=== PATIENT | male | born 1990 | race Caucasian/White ===

== ENCOUNTER 2023-08-28 19:24 | Emergency (ER) | payer SELFPAY ==
[~2023-08-28] VITALS: Ht 180.3 cm; Wt 125.0 kg
[2023-08-28 20:01] LABS: HEMOGLOBIN 13.3 g/dl (13.5-17.5); MEAN CORPUSCULAR HEMOGLOBIN 30.2 pg (27.0-33.0); MEAN CORPUSCULAR HGB CONC 33.3 g/dl (32.0-36.5); MEAN CORPUSCULAR VOLUME 90.9 fl (80.0-96.0); PLATELET COUNT, AUTOMATED 276 10^3/uL (150-450); WHITE BLOOD COUNT 9.4 10^3/uL (4.0-10.0)
[2023-08-28 20:25] LABS: ETHYL ALCOHOL (ETHANOL) < 0.003 % (0.000-0.010)
[2023-08-28 20:27] LABS: ALBUMIN 3.9 G/DL (3.2-5.2); ALKALINE PHOSPHATASE 84 U/L (46-116); ALT/SGPT 44 U/L (7.0-40); AST/SGOT 23 U/L (<34); BILIRUBIN,DIRECT 0.2 MG/DL (<0.4); BILIRUBIN,TOTAL 0.9 MG/DL (0.3-1.2); BLOOD UREA NITROGEN 18 MG/DL (9-23); CALCIUM LEVEL 9.2 MG/DL (8.5-10.1); CARBON DIOXIDE LEVEL 28 MMOL/L (20-31); CHLORIDE LEVEL 108 MMOL/L (98-107); CREATININE FOR GFR 1.01 MG/DL (0.70-1.30); GLOMERULAR FILTRATION RATE > 60.0 (>60); GLUCOSE, FASTING 90 MG/DL (60-100); POTASSIUM SERUM 4.4 MMOL/L (3.5-5.1); SALICYLATE LEVEL < 3.0 MG/DL (<30); SODIUM LEVEL 141 MMOL/L (136-145); TOTAL PROTEIN 7.4 G/DL (5.7-8.2)
[2023-08-28 20:30] LABS: THYROID STIMULATING HORMONE 1.767 uIU/ML (0.55-4.78)
[2023-08-28 20:36] LABS: AMPHETAMINES LEVEL URINE NEGATIVE (NEGATIVE); BARBITURATES URINE NEGATIVE (NEGATIVE); BENZODIAZEPINES URINE NEGATIVE (NEGATIVE); CANNABINOIDS URINE NEGATIVE (NEGATIVE); COCAINE METABOLITE URINE NEGATIVE (NEGATIVE); METHADONE URINE NEGATIVE (NEGATIVE); OPIATES URINE NEGATIVE (NEGATIVE); PHENCYCLIDINE URINE NEGATIVE (NEGATIVE)
[2023-08-28 22:54] VITALS: BP 173/82; TEMP 98.3; O2SAT 95
== END 2023-08-28 23:17 | disposition home or self-care (01) ==
LOC: M ED 19:24
DX: Z04.6 Encounter for general psychiatric examination, requested by authority (principal); F41.9 Anxiety disorder, unspecified; F32.A Depression, unspecified; F95.2 Tourette's disorder

== ENCOUNTER 2023-10-07 18:29 | Inpatient (IN) | payer MEDICAID, SELFPAY ==
[~2023-10-07] VITALS: Ht 180.3 cm; Wt 117.5 kg
[2023-10-07 20:27] LABS: HEMOGLOBIN 14.8 g/dl (13.5-17.5); MEAN CORPUSCULAR HEMOGLOBIN 29.7 pg (27.0-33.0); MEAN CORPUSCULAR HGB CONC 32.9 g/dl (32.0-36.5); MEAN CORPUSCULAR VOLUME 90.4 fl (80.0-96.0); PLATELET COUNT, AUTOMATED 352 10^3/uL (150-450); RED BLOOD COUNT 4.98 10^6/uL (4.30-6.10)
[2023-10-07 20:40] LABS: AMPHETAMINES LEVEL URINE NEGATIVE (NEGATIVE); BARBITURATES URINE NEGATIVE (NEGATIVE)
[2023-10-07 20:41] LABS: BENZODIAZEPINES URINE NEGATIVE (NEGATIVE); CANNABINOIDS URINE NEGATIVE (NEGATIVE); COCAINE METABOLITE URINE NEGATIVE (NEGATIVE); METHADONE URINE NEGATIVE (NEGATIVE); OPIATES URINE NEGATIVE (NEGATIVE); PHENCYCLIDINE URINE NEGATIVE (NEGATIVE)
[2023-10-07 20:43] LABS: ETHYL ALCOHOL (ETHANOL) < 0.003 % (0.000-0.010)
[2023-10-07 20:44] LABS: SALICYLATE LEVEL < 3.0 MG/DL (<30)
[2023-10-07 20:45] LABS: ALBUMIN 4.2 G/DL (3.2-5.2); ALKALINE PHOSPHATASE 87 U/L (46-116); ALT/SGPT 63 U/L (7.0-40); AST/SGOT 25 U/L (<34); BILIRUBIN,DIRECT 0.5 MG/DL (<0.4); BILIRUBIN,TOTAL 1.9 MG/DL (0.3-1.2); BLOOD UREA NITROGEN 13 MG/DL (9-23); CALCIUM LEVEL 9.7 MG/DL (8.5-10.1); CARBON DIOXIDE LEVEL 28 MMOL/L (20-31); CHLORIDE LEVEL 105 MMOL/L (98-107); CREATININE FOR GFR 1.25 MG/DL (0.70-1.30); GLOMERULAR FILTRATION RATE > 60.0 (>60); GLUCOSE, FASTING 92 MG/DL (60-100); POTASSIUM SERUM 4.1 MMOL/L (3.5-5.1); SODIUM LEVEL 140 MMOL/L (136-145); TOTAL PROTEIN 7.8 G/DL (5.7-8.2)
[2023-10-07 20:47] LABS: THYROID STIMULATING HORMONE 2.936 uIU/ML (0.55-4.78)
[2023-10-07] MEDS ORDERED: IBUP-1720 PO (21:28)
[2023-10-07] MEDS ORDERED: HOME MED LIST COMPLETE! XX SCH (21:30)
[2023-10-07] MEDS ORDERED: IBUPROFEN 400MG TAB PO PRN (21:55)
[2023-10-07] MEDS ORDERED: diphenhydrAMINE 25MG CAP PO PRN (21:55)
[2023-10-07] MEDS ORDERED: MOM 30ML SUSPENSION UDC PO PRN (21:55)
[2023-10-08 00:42] VITALS: BP 123/78; TEMP 98.2; O2SAT 97
[2023-10-08] MEDS: traZODone 50 MG TAB PO PRN (00:49)
[2023-10-08 06:35] VITALS: BP 154/94; TEMP 98; O2SAT 99
[2023-10-08] MEDS: SERTRALINE HCL 50 MG TAB PO SCH (08:56)
[2023-10-08] MEDS: risperiDONE 0.5 MG TAB PO PRN (11:33)
[2023-10-08] MEDS: ACETAMINOPHEN TAB 650MG DOSE (2X325MG) PO PRN (15:50)
[2023-10-08 17:34] VITALS: BP 131/61; TEMP 97.9
[2023-10-08] MEDS: MAALOX 30 ML SUSP *UDC PO PRN (18:48)
[2023-10-08] MEDS: ARIPiprazole 2 MG TAB PO SCH (19:59)
[2023-10-09 06:38] VITALS: BP 144/73; TEMP 97; O2SAT 97
[2023-10-09 07:04] LABS: CHOLESTEROL RISK RATIO 7.03 (<5); HDL CHOLESTEROL 27.3 MG/DL (>40); LDL CHOLESTEROL 142.9 MG/DL (<100); NON-HDL-C 164.7 MG/DL
[2023-10-09] MEDS ORDERED: RISP0.5T21 PO (10:45)
[2023-10-09] MEDS ORDERED: ABIL1TAB13 PO (10:45)
[2023-10-09] MEDS ORDERED: TRAZ-252 PO (10:45)
[2023-10-09] MEDS ORDERED: SERT50TA29 PO (10:45)
== END 2023-10-09 11:40 | disposition home or self-care (01) | DRG 756 ==
LOC: M ED 18:29 → M ED INP 21:53 → M PSY 23:56
PROVIDERS: ADMIT Psychiatry & Neurology Psychiatry; ATTEND Student in an Organized Health Care Education/Training Program
DX: F41.1 Generalized anxiety disorder (principal); F43.10 Post-traumatic stress disorder, unspecified; F95.2 Tourette's disorder; F31.81 Bipolar II disorder; F42.9 Obsessive-compulsive disorder, unspecified; Z62.810 Personal history of physical and sexual abuse in childhood; E80.6 Other disorders of bilirubin metabolism

== ENCOUNTER 2023-12-28 16:07 | Emergency (ER) | payer MEDICAID, OTHER ==
[~2023-12-28 16:07] MED LIST: ABIL1TAB13 PO; IBUP-1720 PO; RISP0.5T21 PO; SERT50TA29 PO; TRAZ-252 PO
[2023-12-28 17:11] LABS: HEMOGLOBIN 15.4 g/dl (13.5-17.5); MEAN CORPUSCULAR HEMOGLOBIN 29.7 pg (27.0-33.0); MEAN CORPUSCULAR HGB CONC 33.5 g/dl (32.0-36.5); MEAN CORPUSCULAR VOLUME 88.6 fl (80.0-96.0); PLATELET COUNT, AUTOMATED 360 10^3/uL (150-450); RED BLOOD COUNT 5.19 10^6/uL (4.30-6.10); WHITE BLOOD COUNT 11.2 10^3/uL (4.0-10.0)
[2023-12-28 17:35] LABS: ETHYL ALCOHOL (ETHANOL) < 0.003 % (0.000-0.010)
[2023-12-28 17:37] LABS: ALBUMIN 4.4 G/DL (3.2-5.2); ALKALINE PHOSPHATASE 109 U/L (46-116); ALT/SGPT 44 U/L (7.0-40); AST/SGOT 33 U/L (<34); BILIRUBIN,DIRECT 0.5 MG/DL (<0.4); BILIRUBIN,TOTAL 1.7 MG/DL (0.3-1.2); BLOOD UREA NITROGEN 10 MG/DL (9-23); CALCIUM LEVEL 10.4 MG/DL (8.5-10.1); CARBON DIOXIDE LEVEL 28 MMOL/L (20-31); CHLORIDE LEVEL 107 MMOL/L (98-107); CREATININE FOR GFR 1.22 MG/DL (0.70-1.30); GLOMERULAR FILTRATION RATE > 60.0 (>60); GLUCOSE, FASTING 95 MG/DL (60-100); POTASSIUM SERUM 4.1 MMOL/L (3.5-5.1); SALICYLATE LEVEL < 3.0 MG/DL (<30); SODIUM LEVEL 142 MMOL/L (136-145); TOTAL PROTEIN 8.2 G/DL (5.7-8.2)
[2023-12-28 17:40] LABS: THYROID STIMULATING HORMONE 2.186 uIU/ML (0.55-4.78)
[2023-12-28 17:54] LABS: AMPHETAMINES LEVEL URINE NEGATIVE (NEGATIVE); BARBITURATES URINE NEGATIVE (NEGATIVE); BENZODIAZEPINES URINE POSITIVE (NEGATIVE); CANNABINOIDS URINE POSITIVE (NEGATIVE); COCAINE METABOLITE URINE NEGATIVE (NEGATIVE); METHADONE URINE NEGATIVE (NEGATIVE); OPIATES URINE NEGATIVE (NEGATIVE); PHENCYCLIDINE URINE NEGATIVE (NEGATIVE)
[2023-12-28 18:53] VITALS: BP 140/75; TEMP 96.4; O2SAT 100
== END 2023-12-28 19:05 | disposition home or self-care (01) ==
LOC: EDBD 16:07 → M ED 16:07
DX: F95.2 Tourette's disorder (principal); J45.909 Unspecified asthma, uncomplicated; F31.9 Bipolar disorder, unspecified; Z79.899 Other long term (current) drug therapy

== ENCOUNTER 2024-01-25 21:13 | Inpatient (IN) | payer MEDICAID, OTHER ==
[~2024-01-25] VITALS: Ht 180.3 cm; Wt 117.0 kg
[2024-01-25 22:30] LABS: HEMATOCRIT 44.8 % (42.0-52.0); HEMOGLOBIN 14.9 g/dl (13.5-17.5); MEAN CORPUSCULAR HEMOGLOBIN 30.2 pg (27.0-33.0); MEAN CORPUSCULAR HGB CONC 33.3 g/dl (32.0-36.5); MEAN CORPUSCULAR VOLUME 90.7 fl (80.0-96.0); PLATELET COUNT, AUTOMATED 302 10^3/uL (150-450); RED BLOOD COUNT 4.94 10^6/uL (4.30-6.10); WHITE BLOOD COUNT 9.6 10^3/uL (4.0-10.0)
[2024-01-25 22:57] LABS: AMPHETAMINES LEVEL URINE NEGATIVE (NEGATIVE)
[2024-01-25 22:58] LABS: BARBITURATES URINE NEGATIVE (NEGATIVE); CANNABINOIDS URINE NEGATIVE (NEGATIVE); COCAINE METABOLITE URINE NEGATIVE (NEGATIVE); METHADONE URINE NEGATIVE (NEGATIVE); OPIATES URINE NEGATIVE (NEGATIVE); PHENCYCLIDINE URINE NEGATIVE (NEGATIVE)
[2024-01-25 22:59] LABS: ETHYL ALCOHOL (ETHANOL) < 0.003 % (0.000-0.010)
[2024-01-25 23:00] LABS: BENZODIAZEPINES URINE POSITIVE (NEGATIVE); SALICYLATE LEVEL < 3.0 MG/DL (<30)
[2024-01-25 23:01] LABS: ALBUMIN 4.1 G/DL (3.2-5.2); ALKALINE PHOSPHATASE 127 U/L (40-129); ALT/SGPT 45 U/L (7.0-40); AST/SGOT 18 U/L (<34); BILIRUBIN,DIRECT 0.3 MG/DL (<0.4); BILIRUBIN,TOTAL 0.9 MG/DL (0.3-1.2); BLOOD UREA NITROGEN 13 MG/DL (9-23); CARBON DIOXIDE LEVEL 30 MMOL/L (20-31); CHLORIDE LEVEL 104 MMOL/L (98-107); CREATININE FOR GFR 1.05 MG/DL (0.70-1.30); GLOMERULAR FILTRATION RATE > 60.0 (>60); GLUCOSE, FASTING 93 MG/DL (60-100); POTASSIUM SERUM 4.3 MMOL/L (3.5-5.1); SODIUM LEVEL 139 MMOL/L (136-145); TOTAL PROTEIN 8.1 G/DL (5.7-8.2)
[2024-01-25 23:05] LABS: THYROID STIMULATING HORMONE 3.703 uIU/ML (0.55-4.78)
[2024-01-25] MEDS: LORazepam 1 MG TAB PO STA (23:30)
[2024-01-26] MEDS ORDERED: FLUO-290 PO (06:46)
[2024-01-26] MEDS ORDERED: OMEP-173 PO (06:46)
[2024-01-26] MEDS ORDERED: ACET325C5 PO (06:46)
[2024-01-26] MEDS ORDERED: ARIP1TAB4 PO (06:46)
[2024-01-26] MEDS ORDERED: QUET50TA4 PO (06:46)
[2024-01-26] MEDS ORDERED: HOME MED LIST COMPLETE! XX SCH (06:50)
[2024-01-26] MEDS ORDERED: MAALOX 30 ML SUSP *UDC PO PRN (09:40)
[2024-01-26] MEDS ORDERED: ACETAMINOPHEN 325 MG TAB PO PRN (09:40)
[2024-01-26] MEDS ORDERED: MOM 30ML SUSPENSION UDC PO PRN (09:40)
[2024-01-26] MEDS ORDERED: IBUPROFEN 400MG TAB PO PRN (09:40)
[2024-01-26] MEDS: OMEPRAZOLE 20MG CAP PO SCH (11:08)
[2024-01-26 13:46] VITALS: BP 146/80; TEMP 97; O2SAT 98
[2024-01-26] MEDS: OLANZapine ORAL DISINTEGRATING TAB 5MG PO PRN (14:27)
[2024-01-26 16:45] VITALS: BP 131/81; TEMP 97.3; O2SAT 99
[2024-01-26] MEDS: traZODone 50 MG TAB PO PRN (20:12)
[2024-01-27 06:10] VITALS: BP 134/84; TEMP 97.9; O2SAT 99
[2024-01-27] MEDS: hydrOXYzine 50 MG TAB PO PRN (10:38)
[2024-01-27] MEDS: ARIPiprazole 2 MG TAB PO SCH (10:53)
[2024-01-27] MEDS: SERTRALINE HCL 50 MG TAB PO SCH (10:53)
[2024-01-27 15:57] VITALS: BP 110/74; TEMP 97.8; O2SAT 98
[2024-01-28] MEDS: diphenhydrAMINE 25MG CAP PO PRN (00:15)
[2024-01-28 06:13] VITALS: BP 116/80; TEMP 97.7; O2SAT 100
[2024-01-28] MEDS: cloNIDine 0.1MG TABLET PO PRN (13:24)
[2024-01-28 15:05] VITALS: BP 150/70; TEMP 97.9; O2SAT 98
[2024-01-29 06:21] VITALS: BP 135/86; TEMP 97.6; O2SAT 96
[2024-01-29 08:26] VITALS: BP 135/86
[2024-01-29] MEDS ORDERED: SERT50TA29 PO (11:44)
[2024-01-29] MEDS ORDERED: ABIL1TAB11 PO (11:44)
[2024-01-29] MEDS ORDERED: CLONI1TA PO (11:44)
== END 2024-01-29 13:18 | disposition home or self-care (01) | DRG 58 ==
LOC: M ED 21:13 → M ED INP 01-26 09:37 → M PSY 01-26 12:42
PROVIDERS: ADMIT Psychiatry & Neurology Psychiatry; ATTEND Psychiatry & Neurology Psychiatry
DX: F95.2 Tourette's disorder (principal); F32.A Depression, unspecified; R45.851 Suicidal ideations; Z88.8 Allergy status to other drugs, medicaments and biological substances; F41.1 Generalized anxiety disorder; F31.9 Bipolar disorder, unspecified; Z79.899 Other long term (current) drug therapy